=== PATIENT | female | born 1945 | race Caucasian/White ===

== ENCOUNTER → 2017-02-23 | Outpatient (REF) | payer MEDICARE, BC ==
[2017-02-25 15:07] LABS: FOLATE 13.4 NG/ML (>5.4)
[2017-02-25 16:22] LABS: PERCENT SATURATION 9.9 % (13.2-37.4)
== END ==
LOC: M LAB REF 09:44
PROVIDERS: ATTEND Internal Medicine
DX: D64.9 Anemia, unspecified (principal)

== ENCOUNTER → 2018-04-07 | Outpatient (REF) | payer MEDICARE, BC | LOC: M LAB REF 15:42 | DX: R92.0 Mammographic microcalcification found on diagnostic imaging of breast (principal); N64.1 Fat necrosis of breast | CPT/HCPCS: 88305 ==

== ENCOUNTER → 2019-07-21 | Outpatient (REF) | payer MEDICARE ==
[2019-07-21 17:14] LABS: PERCENT SATURATION 21.8 % (13.2-45.0)
[2019-07-21 17:16] LABS: TOTAL T3 91.9 NG/DL (60.0-181.0)
== END ==
LOC: M LAB REF 16:38
PROVIDERS: ATTEND Internal Medicine
DX: L65.9 Nonscarring hair loss, unspecified (principal)

== ENCOUNTER → 2021-04-17 | Outpatient (CLI) | payer MEDICARE ==
--- NOTE | 2021-04-22 16:44 | REPMRS ---
Patient History The patient states she has not had a clinical breast exam in over a year. Patient is postmenopausal and is nulliparous. Family history of breast cancer in mother, breast cancer in paternal grandmother, unknown cancer in father, breast cancer in paternal aunt. Took unspecified hormones for 20 years beginning at age 26. Benign bilateral breast excisional biopsies. Left breast benign biopsy. Pt stated she had Covid vaccines in November 2020 in her left arm, unable to remember exact dates. Patient states no breast complaints today. Patient has signed MRS History Sheet. Digital Woman Screen Mammo: April 17, 2021 - Exam #: [id number] Bilateral CC and MLO view(s) were taken. Technologist: RT Mike FINDINGS: There are scattered fibroglandular densities. on.Screening. Digital screening (2D) mammography was performed bilaterally in the CC and MLO projections. Additionally, breast tomosynthesis (3D mammography) was performed bilaterally in the CC and MLO projections. Todays exam was compared to the prior exam/exams. By history, the patient has no complaints of a palpable breast abnormality or other significant breast complaints. The breasts are unchanged in size and shape. There is stable post-procedural internal architectural distortion.There are no paul-soft tissue densities or spiculated masses. There is no new internal architectural distortion. Once again, stable benign appearing calcifications are seen.There are no suspicious paul-calcific clusters. Skin thickening or nipple retraction is not present. IMPRESSION: BI-RADS Category 2- Benign Findings. There is no evidence of malignant alteration of the breasts. Followup examination recommended in one year. The Volpara volumetric breast density category is B, there are scattered areas of fibroglandular densities. This mammogram was read with the assistance [facility],an FDA approved computer aided detection system for mammography. The lifetime Tyrer-Cuzick score is 5.4 % Negative x-ray reports should not delay surgical consultation if a dominant or clinically suspicious mass is present. Not all breast cancers can be identified by mammography. Therefore, we recommend that you continue to perform regular breast self-examination and physical examination and then promptly contact your physician of any concerns or changes. Adenosis and dense breasts may obscure an underlying neoplasm. Assessment: BI-RADS/ACR category 2 mammogram. Benign Findings. Recommendation Routine screening mammogram of both breasts in 1 year. Electronically Signed By: Luigi Quintanilla DO 04/22/21 2310
--- NOTE | 2021-04-23 13:04 | DEXAMM ---
INDICATION: VIT D DEFICIENCY. COMPARISON: 03/30/2018, 09/27/2001. TECHNIQUE: Bone density was measured using dual-energy x-ray absorptiometry (DEXA). FINDINGS: AP SPINE L1-L4 BMD 1.193 g/cm2 Young Adult T-Score 0.0 Age Matched Z-Score 1.8. LT FEMUR, TOTAL BMD 0.861 g/cm2 Young Adult T-Score -1.2 Age Matched Z-Score 0.7. LT NECK BMD 0.787 g/cm2 Young Adult T-Score -1.8 Age Matched Z-Score 0.2. RT FEMUR, TOTAL BMD 0.839 g/cm2 Young Adult T-Score -1.3 Age Matched Z-Score 0.5. RT NECK BMD 0.756 g/cm2 Young Adult T-Score -2.0 Age Matched Z-Score 0.0. IMPRESSION: There is normal bone density of the spine. There is low bone density of the left hip. There is low bone density of the right hip. The density of the spine has increased 6.7% since the initial exam on 09/27/2001. The density of the spine decreased 3.6% since most recent exam on 03/30/2018. The density of the left hip has decreased 9.0% since initial exam on 09/27/2001. The density of the left hip has decreased 2.7% since most recent exam on 03/30/2018. The density of the right hip has decreased 10.2% since the initial exam on 09/27/2001. The density of the right hip has decreased 3.2% since the most recent exam on 03/30/2018. FOLLOW-UP: Recommendation for the next bone density exam: 2 years. <Electronically signed by Michael Ham > 04/23/21 [id number]
== END ==
LOC: M WHC 07:14
PROVIDERS: ATTEND Internal Medicine
DX: Z12.31 Encounter for screening mammogram for malignant neoplasm of breast (principal); E55.9 Vitamin D deficiency, unspecified; Z80.3 Family history of malignant neoplasm of breast; Z78.0 Asymptomatic menopausal state; R92.2 Inconclusive mammogram; M85.88 Other specified disorders of bone density and structure, other site

== ENCOUNTER → 2021-11-08 | Outpatient (REF) | payer MEDICARE | LOC: M LAB REF 11:54 | PROVIDERS: ATTEND Internal Medicine | DX: N39.0 Urinary tract infection, site not specified (principal) ==

== ENCOUNTER → 2022-05-29 | Outpatient (CLI) | payer MEDICARE | LOC: M WHC 10:40 | PROVIDERS: ATTEND Internal Medicine | DX: Z12.31 Encounter for screening mammogram for malignant neoplasm of breast (principal) ==

== ENCOUNTER → 2023-09-28 | Outpatient (CLI) | payer MEDICARE | LOC: M WHC 11:10 | PROVIDERS: ATTEND Internal Medicine | DX: Z12.31 Encounter for screening mammogram for malignant neoplasm of breast (principal); R92.323 Mammographic fibroglandular density, bilateral breasts ==

== ENCOUNTER → 2024-03-14 | Outpatient (CLI) | payer MEDICARE | LOC: M WHC 14:57 | PROVIDERS: ATTEND Internal Medicine | DX: M85.851 Other specified disorders of bone density and structure, right thigh (principal); M85.852 Other specified disorders of bone density and structure, left thigh ==